=== PATIENT | male | born 1980 | race Caucasian/White ===

== ENCOUNTER 2020-11-24 06:20 | Day surgery (SDC) | payer OTHER ==
[2020-11-20 15:21] VITALS: BMI 31.1
[2020-11-24] MEDS ORDERED: PROPOFOL 20 ML ONE ×2 (06:50)
[2020-11-24] MEDS ORDERED: BUPIVACAINE LIPOSOME/PF (EXPAREL) 266 MG/20 ML VIAL ONE (06:57)
[2020-11-24] MEDS ORDERED: MIDAZOLAM HCL 2 MG/2 ML SINGLE DOSE VIAL ONE (06:57)
[2020-11-24] MEDS ORDERED: oxyCODONE HCL 5 MG TABLET PO PRN (07:06)
[2020-11-24] MEDS ORDERED: LACTATED RINGERS SOLUTION 1,000 ML IV SCH (07:15)
[2020-11-24] MEDS ORDERED: ONDANSETRON 4 MG/2 ML VIAL ONE ×2 (08:17→09:53)
[2020-11-24] MEDS ORDERED: DEXAMETHASONE SOD PHOSPHATE 4 MG/1 ML VIAL ONE (08:17)
[2020-11-24] MEDS ORDERED: ceFAZolin SODIUM 1 GM VIAL ONE (08:17)
[2020-11-24] MEDS ORDERED: EPHEDRINE SULFATE/0.9% NACL/PF 50 MG/10 ML SYRINGE NR ONE (08:18)
[2020-11-24] MEDS ORDERED: GLYCOPYRROLATE 0.2 MG/1 ML VIAL ONE (08:24)
[2020-11-24] MEDS ORDERED: TRANEXAMIC ACID 1000 MG/10 ML VIAL ONE (08:52)
[2020-11-24] MEDS ORDERED: KETOROLAC TROMETHAMINE 30 MG/1 ML VIAL ONE (09:25)
[2020-11-24] MEDS: ONDANSETRON 4 MG/2 ML VIAL IVPUSH PRN ×2 (09:53→11:40)
[2020-11-24] MEDS ORDERED: ACETAMINOPHEN INJECTION 100 ML IVPB ONE (10:15)
[2020-11-24] MEDS ORDERED: ACETAMINOPHEN 1000 MG/100 ML VIAL (NON FORMULARY) IVPB ONE ×2 (10:20→12:04)
[2020-11-24] MEDS ORDERED: oxyCODONE HCL 5 MG TABLET ONE (11:10)
[2020-11-24 12:47] VITALS: BP 126/67; PULSE 67; TEMP 97.9
== END 2020-11-24 12:40 | disposition home or self-care (01) ==
LOC: FASU 06:20
PROVIDERS: ATTEND Orthopaedic Surgery
PROC: 0SBC4ZZ Excision of Right Knee Joint, Percutaneous Endoscopic Approach (ICD-10-PCS; 2020-11-24)
PROC: 0SBC4ZZ Excision of Right Knee Joint, Percutaneous Endoscopic Approach (ICD-10-PCS; 2020-11-24)
PROC: 0MRN47Z Replacement of Right Knee Bursa and Ligament with Autologous Tissue Substitute, Percutaneous Endoscopic Approach (ICD-10-PCS; principal; 2020-11-24 08:29)
DX: S83.511A Sprain of anterior cruciate ligament of right knee, initial encounter (principal); S83.241A Other tear of medial meniscus, current injury, right knee, initial encounter; M94.8X6 Other specified disorders of cartilage, lower leg; M65.861 Other synovitis and tenosynovitis, right lower leg; X58.XXXA Exposure to other specified factors, initial encounter; Y92.9 Unspecified place or not applicable; Y93.9 Activity, unspecified
CPT/HCPCS: 29880; 29888; C1713; 88304-TC; 94760; J0131

== ENCOUNTER 2023-02-05 06:04 | Day surgery (SDC) | payer OTHER ==
[2023-02-04 09:50] VITALS: BMI 33.2
[2023-02-05] MEDS ORDERED: LIDOCAINE HCL 2% (20ML MULTI-DOSE VIAL) ONE (07:20)
[2023-02-05] MEDS ORDERED: MIDAZOLAM HCL 2 MG/2 ML SINGLE DOSE VIAL ONE (07:47)
[2023-02-05] MEDS ORDERED: PROPOFOL 20 ML ONE ×2 (07:48→08:46)
[2023-02-05] MEDS ORDERED: BUPIVACAINE HCL/PF 0.25% (2.5MG/ML) 10 ML VIAL ONE (08:21)
[2023-02-05] MEDS ORDERED: DEXAMETHASONE SOD PHOSPHATE 4 MG/1 ML VIAL ONE (08:36)
[2023-02-05] MEDS ORDERED: ONDANSETRON 4 MG/2 ML VIAL ONE (08:36)
[2023-02-05] MEDS ORDERED: KETOROLAC TROMETHAMINE 30 MG/1 ML VIAL ONE (08:36)
[2023-02-05] MEDS ORDERED: BUPIVACAINE HCL/PF 0.25% (2.5MG/ML) 10 ML VIAL IJ ONE (08:42)
[2023-02-05] MEDS ORDERED: ONDANSETRON 4 MG/2 ML VIAL IVPUSH PRN (08:56)
[2023-02-05] MEDS ORDERED: oxyCODONE HCL 5 MG TABLET PO PRN ×2 (08:56)
[2023-02-05] MEDS ORDERED: LACTATED RINGERS SOLUTION 1,000 ML IV SCH (09:00)
[2023-02-05 09:54] VITALS: RESP 20
[2023-02-05 09:59] VITALS: BP 132/80; PULSE 61; TEMP 97.4
== END 2023-02-05 09:50 | disposition home or self-care (01) ==
LOC: FASU 06:04
PROVIDERS: ATTEND Orthopaedic Surgery Hand Surgery
PROC: 0JBJ0ZZ Excision of Right Hand Subcutaneous Tissue and Fascia, Open Approach (ICD-10-PCS; principal; 2023-02-05 08:20)
DX: D21.11 Benign neoplasm of connective and other soft tissue of right upper limb, including shoulder (principal); M72.4 Pseudosarcomatous fibromatosis
CPT/HCPCS: 88305-TC; 94760